=== PATIENT | female | born 1960 | race Caucasian/White ===

== ENCOUNTER 2017-09-22 13:21 | Day surgery (SDC) | payer OTHER ==
[~2017-09-22 13:21] MED LIST: LIDOCAINE 2% (SDV) 5 ML INJ; ONDANSETRON 4 MG INJ
[2017-09-22] MEDS ORDERED: MIDAZOLAM 1 MG/ML 2 ML INJ IV (14:30)
[2017-09-22] MEDS ORDERED: FENTAnyl 50 MCG/ML VIAL IV (14:30)
[2017-09-22] MEDS ORDERED: METOCLOPRAMIDE 10 MG INJ IV (14:30)
[2017-09-22] MEDS ORDERED: EPHEDrine SULFATE 50 MG/5 ML SYG IV (14:30)
[2017-09-22] MEDS ORDERED: LABETALOL HCL 20MG INJ IV (14:30)
[2017-09-22] MEDS ORDERED: ALBUTEROL 0.083% (NEB) 2.5 MG/3 ML AMP HHN (14:30)
[2017-09-22] MEDS ORDERED: hydrALAzine 20 MG INJ IV (14:30)
[2017-09-22] MEDS ORDERED: OXYCODONE/ACETAMINOPHEN (5/325) TAB PO (14:30)
[2017-09-22] MEDS ORDERED: MIDAZOLAM 1 MG/ML 2 ML INJ (14:43)
[2017-09-22] MEDS ORDERED: PROPOFOL 100 ML (14:43)
[2017-09-22] MEDS: POLYMYXIN/BACITRACIN 1L IRRIG (14:51)
[2017-09-22] MEDS: THROMBIN 5000 UNIT VIAL (15:58)
[2017-09-22] MEDS: GELATIN SIZE 100 SPONGE (15:59)
[2017-09-22] MEDS ORDERED: DEXAMETHASONE 4 MG/ML 1 ML INJ (16:39)
[2017-09-22] MEDS ORDERED: KETOROLAC 30 MG INJ (16:39)
[2017-09-22] MEDS ORDERED: ACETAMINOPHEN 1000MG/100ML IV 100 ML (16:40)
[2017-09-22] MEDS ORDERED: ROCURONIUM 50 MG INJ (16:40)
[2017-09-22] MEDS ORDERED: CEFAZOLIN 1 GM INJ (16:40)
[2017-09-22] MEDS: FENTAnyl 50 MCG/ML VIAL IV ×5 (17:03→18:48)
[2017-09-22] MEDS: MEPERIDINE 25 MG INJ IV (17:07)
[2017-09-22] MEDS: DIPHENHYDRAMINE 50 MG INJ IV (17:11)
[2017-09-22] MEDS: KETOROLAC 30 MG INJ IV (17:13)
[2017-09-22] MEDS: OXYCODONE/ACETAMINOPHEN (5/325) TAB PO (18:11)
[2017-09-22] MEDS: ONDANSETRON 4 MG INJ IV (18:21)
== END 2017-09-22 20:00 | disposition home or self-care (01) ==
LOC: SDS 13:21
DX: M19.041 Primary osteoarthritis, right hand (principal); I10 Essential (primary) hypertension; J44.9 Chronic obstructive pulmonary disease, unspecified
CPT/HCPCS: 26862; 73130-RT